=== PATIENT | female | born 1990 | race African-American/Black ===

== ENCOUNTER 2025-05-08 11:33 | Emergency (ER) | payer SELFPAY ==
[~2025-05-08] VITALS: Ht 165.1 cm; Wt 47.6 kg
[2025-05-08 11:52] VITALS: BP 116/73; TEMP 98
[2025-05-08] MEDS ORDERED: FLUCONAZOLE (100 MG) 100 MG TABLET ONE (12:34)
[2025-05-08] MEDS: FLUCONAZOLE (100 MG) 100 MG TABLET PO ONE (12:38)
[2025-05-08 12:39] VITALS: O2SAT 97
[2025-05-08 12:56] LABS: APPEARANCE,URINE SLIGHTLY CLOUDY (CLEAR); BLOOD, URINE Negative Ery/uL (NEGATIVE); LEUKOCYTE ESTERASE ,URINE Small (NEGATIVE); UGLUCOSE Negative (NEGATIVE)
[2025-05-08 12:57] LABS: NITRITE, URINE NEGATIVE (NEGATIVE); PREGNANCY TEST URINE QUAL NEGATIVE (NEGATIVE)
[2025-05-08 13:10] LABS: ADD URINE CULTURE YES
== END 2025-05-08 12:40 | disposition home or self-care (01) ==
LOC: ER 11:38
DX: N89.8 Other specified noninflammatory disorders of vagina (principal); Z88.1 Allergy status to other antibiotic agents
CPT/HCPCS: 81001; 84703-TC; 87086-TC